=== PATIENT | female | born 1995 | race Caucasian/White ===

== ENCOUNTER 2021-12-15 17:39 | Emergency (ER) | payer OTHER, SELFPAY ==
[2021-12-15 17:51] VITALS: BP 136/75; PULSE 60; RESP 17; TEMP 36.8; O2SAT 99; BMI 19.8
[2021-12-15 18:22] LABS: Add Manual Diff / Slide Review NO; Basophils Absolute Auto 0 /uL (0-100); Basophils Percent Auto 0.6 % (0-2); Eosinophils Absolute Auto 100 /uL (0-450); Eosinophils Percent Auto 1.8 % (2-4); Hematocrit 43.7 % (36-46); Hemoglobin 15.2 g/dL (12.0-16.0); Lymphocytes Absolute Auto 1700 /uL (1100-4500); Lymphocytes Percent Auto 22.3 % (25-40); Mean Corpuscular HGB Conc 34.7 % (30-36); Mean Corpuscular Hemoglobin 32.2 PG (26-34); Mean Corpuscular Volume 92.7 fL (80-100); Monocytes Absolute Auto 600 /uL (0-900); Monocytes Percent Auto 8.2 % (3-14); Neutrophils Absolute Auto 5000 /uL (1500-7000); Neutrophils Percent Auto 67.1 % (50-75); Platelet Count 216 X10^3/uL (150-400); Red Blood Cell Count 4.71 X10^6/uL (4.0-5.2); Red Cell Distribution Width 12.1 % (11.6-14.8); White Blood Cell Count 7.4 X10^3/uL (4.5-11.0)
[2021-12-15 18:24] LABS: Alanine Aminotransferase 18 IU/L (<35); Albumin Globulin Ratio 1.5 (1.0-2.8); Alkaline Phosphatase 40 U/L (38-126); Aspartate Aminotransferase 40 IU/L (14-36); BUN Creatinine Ratio 29.2 (6-22); Bilirubin Total 1.3 mg/dL (0.2-1.3); Blood Urea Nitrogen 19 mg/dL (7-17); Calcium 9.6 mg/dL (8.4-10.2); Carbon Dioxide 29 mmol/L (22-32); Chloride 103 mmol/L (98-107); Estimated Glomerular Filt Rate > 60.0 mL/min (>60); Globulin 3.3 g/dL (1.7-4.1); Glucose 85 mg/dL (70-100); Lipase 106 U/L (23-300); Potassium 3.9 mmol/L (3.4-5.1); Sodium 138 mmol/L (137-145); Total Protein 8.3 g/dL (6.3-8.2)
[2021-12-15 18:31] LABS: HEMOLYSIS 87 (0-50)
[2021-12-15 18:48] LABS: COVID19 -Nasal RAPID Negative (Negative)
[2021-12-15 19:40] LABS: Appearance Urine UA SL CLOUDY; Bilirubin Urine UA NEGATIVE (NEGATIVE); Color Urine UA YELLOW; Glucose Urine UA NEGATIVE (Negative); Ketones Urine UA TRACE (NEGATIVE); Leukocyte Esterase Urine UA NEGATIVE (NEGATIVE); Nitrite Urine UA NEGATIVE (Negative); Occult Blood Urine UA 3+ (Negative); Protein Urine UA NEGATIVE (Negative); Specific Gravity Urine UA 1.025 (1.000-1.035); Urobilinogen Urine UA 0.2 E.U./dL (0.2)
[2021-12-15 19:47] LABS: pH Urine UA 5.5 (4.5-8.0)
--- NOTE | 2021-12-15 19:48 | ED_ITS ---
HPI - Abdominal Pain General Chief Complaint: Abdominal Pain Stated Complaint: rt to mid abd pain Time Seen by Provider: 12/15/21 19:47 Source: patient Mode of arrival: Ambulatory Limitations: no limitations History of Present Illness HPI narrative: This is a 26-year-old female comes with complaint of abdominal pain the patient describes is midline. She has had it for about 2 days. It woke her up from sleep. It improved with lying flat. She has had persistent discomfort but not constant it does seem to be worse with increased intra-abdominal pressure. She has not any fevers or chills. No nausea or vomiting. She has had normal bowel movements. She did recently and her menses but still is having some slight spotting for the past 2 days. She denies dysuria urgency or frequency. No black or bloody stools. No vaginal discharge. She does have an IUD. She denies medical issues. No prior surgeries. No tobacco, occasional alcohol, occasional THC but no illicit. She is not appreciate any lumps or bulges. She states she is quite active in physical. She states she can feel like gap in the muscles and midline in her abdomen. Related Data Home Medications Medication Instructions Recorded Confirmed levonorgestrel 20 mcg/24 hours (7 52 mg INTRAU #0 05/18/17 12/12/20 yrs) 52 mg intrauterine device (Mirena) Allergies Allergy/AdvReac Type Severity Reaction Status Date / Time No Known Drug Allergies Allergy Verified 12/15/21 17:56 Review of Systems Review of Systems ROS Unobtainable: All systems reviewed & are unremarkable except as noted in HPI and below Patient History Medical History Raynaud disease Family History Grandfather Stroke Heart disease Grandmother Hypertension Social History Smoking Status: Never smoker alcohol intake: current substance use type: does not use Smoking Status: Never smoker alcohol intake frequency: 0-2 drinks per day Substance Use Type: marijuana Exam Narrative Exam Narrative: GENERAL: Alert and oriented x three, female in mild distress. HEENT: Head normocephalic, atraumatic, EOMI, pupils reactive, face symmetric, moist mucous membranes NECK: Supple, full range of motion CARDIOVASCULAR: Regular rate and rhythm without murmurs, rubs or gallops. RESPIRATORY: Breath sounds equal bilaterally, no wheezes rales or rhonchi. ABDOMEN: Soft, nontender exam except for some very mild midline tenderness. Patient does have what feels similar to a diastasis recti that is about 1 cm on examination supraumbilical. Some very mild periumbilical tenderness and the umbilicus itself but no distention soft without any bulge or signs of hernia. Normoactive bowel sounds all 4 quadrants. No guarding or rebound, rigidity, no mass : No CVA tenderness EXTREMITIES: Normal range of motion, no clubbing or edema. Neurovascularly intact NEUROLOGICAL: Cranial nerves II through XII grossly intact. Moving all extremities SKIN: Warm, dry, no petechiae, no rashes or lesions. Initial Vital Signs Initial Vital Signs: Vital Signs Temperature 98.2 F 12/15/21 17:51 Pulse Rate 60 12/15/21 17:51 Respiratory Rate 17 12/15/21 17:51 Blood Pressure 136/75 12/15/21 17:51 Pulse Oximetry 99 12/15/21 17:51 Course Orders Ordered: ED Orders 12/15/21 18:00 COVID19 -Nasal swab/Pre-Proc Stat Complete Blood Count AUTO DIFF Stat Comprehensive Metabolic Panel Stat Lipase Stat 12/15/21 18:36 Urinalysis and Microscopic Stat 12/15/21 20:10 US abdomen limited Stat Discontinued Medications Ketorolac Tromethamine (Ketorolac 30 Mg/Ml Vial) 15 mg IV NOW ONE Stop: 12/15/21 20:11 Last Admin: 12/15/21 20:19 Dose: 15 mg Documented by: BALJINDER Vital Signs Vital signs: Vital Signs - 8 hr 12/15/21 17:51 12/15/21 21:04 Temperature 98.2 F Pulse Rate 60 62 Respiratory Rate 17 12 Blood Pressure 136/75 Pulse Oximetry 99 99 MDM - Abdominal Pain Lab Data Result diagrams: 12/15/21 18:00 12/15/21 18:00 Labs: Lab Results 12/15/21 12/15/21 12/15/21 Range/Units 18:00 18:00 18:00 WBC 7.4 (4.5-11.0) X10^3/uL RBC 4.71 (4.0-5.2) X10^6/uL Hgb 15.2 (12.0-16.0) g/dL Hct 43.7 (36-46) % MCV 92.7 (80-100) fL MCH 32.2 (26-34) PG MCHC 34.7 (30-36) % RDW 12.1 (11.6-14.8) % Plt Count 216 (150-400) X10^3/uL Neut % (Auto) 67.1 (50-75) % Lymph % (Auto) 22.3 L (25-40) % [place] % (Auto) 8.2 (3-14) % Eos % (Auto) 1.8 L (2-4) % Baso % (Auto) 0.6 (0-2) % Neut # (Auto) 5000 (0934-0120) /uL Lymph # (Auto) 1700 (6511-4405) /uL [place] # (Auto) 600 (0-900) /uL Eos # (Auto) 100 (0-450) /uL Baso # (Auto) 0 (0-100) /uL Sodium 138 (137-145) mmol/L Potassium 3.9 (3.4-5.1) mmol/L Chloride 103 (98-107) mmol/L Carbon Dioxide 29 (22-32) mmol/L BUN 19 H (7-17) mg/dL Creatinine 0.65 (0.52-1.04) mg/dL Estimated GFR > 60.0 (>60) mL/min BUN/Creatinine Ratio 29.2 H (6-22) Glucose 85 (70-100) mg/dL Calcium 9.6 (8.4-10.2) mg/dL Total Bilirubin 1.3 (0.2-1.3) mg/dL AST 40 H (14-36) IU/L ALT 18 (<35) IU/L Alkaline Phosphatase 40 (38-126) U/L Total Protein 8.3 H (6.3-8.2) g/dL Albumin 5.0 (3.5-5.0) g/dL Globulin 3.3 (1.7-4.1) g/dL Albumin/Globulin Ratio 1.5 (1.0-2.8) Lipase 106 (23-300) U/L Urine Color Urine Appearance Urine pH (4.5-8.0) Ur Specific [place] (1.000-1.035) Urine Protein (Negative) Urine Glucose (UA) (Negative) g/dL Urine Ketones (NEGATIVE) Urine Occult Blood (Negative) Urine Nitrate (Negative) Urine Bilirubin (NEGATIVE) Urine Urobilinogen (0.2) E.U./dL Ur Leukocyte Esterase (NEGATIVE) Urine RBC (0-5/HPF) Urine WBC (0-5/HPF) Ur Squamous Epith Cells (0-5/HPF) Ur Transition Epith Cell (0-5/HPF) Urine Bacteria (None) Ur Culture Indicated? SARS-CoV-2 (PCR) Negative (Negative) 12/15/21 Range/Units 18:36 WBC (4.5-11.0) X10^3/uL RBC (4.0-5.2) X10^6/uL Hgb (12.0-16.0) g/dL Hct (36-46) % MCV (80-100) fL MCH (26-34) PG MCHC (30-36) % RDW (11.6-14.8) % Plt Count (150-400) X10^3/uL Neut % (Auto) (50-75) % Lymph % (Auto) (25-40) % [place] % (Auto) (3-14) % Eos % (Auto) (2-4) % Baso % (Auto) (0-2) % Neut # (Auto) (6578-6020) /uL Lymph # (Auto) (6027-5807) /uL [place] # (Auto) (0-900) /uL Eos # (Auto) (0-450) /uL Baso # (Auto) (0-100) /uL Sodium (137-145) mmol/L Potassium (3.4-5.1) mmol/L Chloride (98-107) mmol/L Carbon Dioxide (22-32) mmol/L BUN (7-17) mg/dL Creatinine (0.52-1.04) mg/dL Estimated GFR (>60) mL/min BUN/Creatinine Ratio (6-22) Glucose (70-100) mg/dL Calcium (8.4-10.2) mg/dL Total Bilirubin (0.2-1.3) mg/dL AST (14-36) IU/L ALT (<35) IU/L Alkaline Phosphatase (38-126) U/L Total Protein (6.3-8.2) g/dL Albumin (3.5-5.0) g/dL Globulin (1.7-4.1) g/dL Albumin/Globulin Ratio (1.0-2.8) Lipase (23-300) U/L Urine Color Yellow Urine Appearance Sl cloudy Urine pH 5.5 (4.5-8.0) Ur Specific [place] 1.025 (1.000-1.035) Urine Protein Negative (Negative) Urine Glucose (UA) Negative (Negative) g/dL Urine Ketones Trace H (NEGATIVE) Urine Occult Blood 3+ H (Negative) Urine Nitrate Negative (Negative) Urine Bilirubin Negative (NEGATIVE) Urine Urobilinogen 0.2 (0.2) E.U./dL Ur Leukocyte Esterase Negative (NEGATIVE) Urine RBC 5-10/hpf H (0-5/HPF) Urine WBC 5-10/hpf H (0-5/HPF) Ur Squamous Epith Cells >30 /hpf H (0-5/HPF) Ur Transition Epith Cell 5-10/hpf H (0-5/HPF) Urine Bacteria Many (>30) H (None) Ur Culture Indicated? Cult not indicated SARS-CoV-2 (PCR) (Negative) Point of care testing: Point of Care Testing Test Results Negative Urine Dip Bedside Urine Glucose Negative Bedside Urine Bilirubin - Negative Bedside Urine Ketone - Negative Urine Specific [place] 1.030 Bedside Urine Occult Blood ++ Bedside Urine pH 6.0 Bedside Urine Protein - Negative Bedside Urine Urobilinogen - Negative Bedside Urine Nitrite - Negative Bedside Urine Leukocytes - Negative Esterase Imaging Data US - abdomen: Radiologist's Impression: [place] [id number] Ultrasound Report Signed Patient: Dori Knowles MR#: [id number] : 1995 Acct:[id number] Age/Sex: 26 / F Date of Service: 12/15/21 Loc: ED Accession Number: [id number] ?? Procedure: US abdomen limited Ordering Provider: Wanda Moses D.O. PROCEDURE: US ABDOMEN LIMITED ? INDICATIONS:? PERIUMBILICAL PAIN ? TECHNIQUE:? Real-time focused scanning was performed of the abdomen, with image documentation.? ? COMPARISON:? None. ? FINDINGS:? No hernia is seen in the periumbilical region.? The appendix is not visualized at the right lower quadrant. ? IMPRESSION:? No periumbilical hernia.? Appendix is not visualized in the right lower quadrant. ? ? Dictated by: Alvaro Thakkar M.D. on 12/15/2021 at 20:56 ? ? Approved by: Alvaro Thakkar M.D. on 12/15/2021 at 20:57?? MDM Narrative Medical decision making narrative: This is a 26-year-old female who has midline abdominal pain which she describes as being intermittent for the past 2 days worse with increased abdominal pressure. She feels gap some tenderness at the umbilicus. No obvious hernia on palpation she does have what feels like a diastasis recti. She is not having any tenderness on palpation with right lower quadrant and really denies any right lower quadrant pelvic pain today. Patient has hematuria on her urine as well as squamous epithelials she recently finished her menses but is continuing to have some spotting which is likely a cause of this. Plan for abdominal ultrasound we did discuss CT abdomen pelvis but deferred secondary to risk versus benefits. Discharge Plan Departure Patient Disposition: Home Clinical Impression: Abdominal pain Activity Restrictions/Additional Instructions: Follow-up with your physician for recheck if you have persistent symptoms. No obvious hernia was noted on ultrasound today but if you notice any lumps or protrusions you should be re-evaluated. You do appear to have some diastasis recti on examination this could be contributing to her symptoms as well. Please return for fevers, rapidly worsening abdominal pain, vomiting, black or bloody stools, new urinary changes, or other new or concerning symptoms. Prescriptions: No Action levonorgestrel [Mirena] 1 EACH intrauterine device 52 mg INTRAU Qty: 0 0RF Referrals: Emily Morrison MD [Primary Care Provider] -
[2021-12-15 19:51] LABS: Bacteria Urine Many (>30); Culture Indicated Urine Cult Not Indicated; RBC Urine 5-10/HPF (0-5/HPF); Squamous Epithelial Cell Urine >30 /HPF (0-5/HPF)
[2021-12-15 19:52] LABS: Transitional Epi Cells Urine 5-10/HPF (0-5/HPF); WBC Urine 5-10/HPF (0-5/HPF)
--- NOTE | 2021-12-15 20:10 | DI.US.S_ITS ---
PROCEDURE: US ABDOMEN LIMITED INDICATIONS: PERIUMBILICAL PAIN TECHNIQUE: Real-time focused scanning was performed of the abdomen, with image documentation. COMPARISON: None. FINDINGS: No hernia is seen in the periumbilical region. The appendix is not visualized at the right lower quadrant. IMPRESSION: No periumbilical hernia. Appendix is not visualized in the right lower quadrant. Dictated by: Alvaro Thakkar M.D. on 12/15/2021 at 20:56 Approved by: Alvaro Thakkar M.D. on 12/15/2021 at 20:57
[2021-12-15] MEDS: KETOROLAC 30 MG/ML VIAL 15 MG IV (20:19)
[2021-12-15 21:04] VITALS: PULSE 62; RESP 12; O2SAT 99
== END 2021-12-15 21:05 | disposition home or self-care (01) ==
PROVIDERS: Emergency Medicine; Emergency Provider Emergency Medicine; PCP Family Medicine
DX: R10.9 Unspecified abdominal pain (principal); Z20.822 Contact with and (suspected) exposure to COVID-19
CPT/HCPCS: 76705; 80053; 81001; 81003; 81025; 83690; 85025; 87635; 96374; 99283; 99284; C9803; J1885

== ENCOUNTER → 2023-04-20 07:58 | Outpatient (CLI) | payer OTHER, SELFPAY ==
[2023-04-20 08:48] LABS: Influenza A - CEPHEID Flu A NEGATIVE (NEGATIVE); Influenza B - CEPHEID Flu B NEGATIVE (NEGATIVE); Respiratory Syncytial Virus Negative (Negative)
[2023-04-20 09:18] LABS: COVID-19 CEPHEID 4-PLEX PCR Negative (Negative)
== END ==
PROVIDERS: PCP Family Medicine; Visit Provider Student in an Organized Health Care Education/Training Program
DX: J06.9 Acute upper respiratory infection, unspecified (principal)
CPT/HCPCS: 0241U

== ENCOUNTER 2023-04-20 08:48 | Emergency (ER) | payer OTHER, SELFPAY ==
[2023-04-20] VITALS (9 sets, daily range): BP systolic 128–166; BP diastolic 75–103; PULSE 57–73; RESP 16; TEMP 37.3–37.4; O2SAT 97–100; BMI 18.2
--- NOTE | 2023-04-20 09:01 | DI.US.S_ITS ---
PROCEDURE: US ABDOMEN LIMITED INDICATIONS: EPIGASTRIC PAIN. NAUSEA AND VOMITING. TECHNIQUE: Real-time focused scanning was performed of the abdomen, with image documentation. COMPARISON: [facility], US, US ABDOMEN LIMITED, 12/15/2021, 20:34. FINDINGS: Liver measures 14 cm. No focal lesion. Echotexture is within normal limits. Gallbladder is within normal limits. CBD measures 4 mm. No pathologic free fluid. Visualized pancreas within normal limits. IMPRESSION: No acute sonographic abnormality in the right upper quadrant. Dictated by: Prateek Segura M.D. on 04/20/2023 at 9:49 Approved by: Prateek Segura M.D. on 04/20/2023 at 9:50
--- NOTE | 2023-04-20 09:02 | ED.GENADULT ---
HPI - General Adult General Chief complaint: Nausea/Vomiting/Diarrhea Stated complaint: haven't stopped throwing up since Tuesday Time Seen by Provider: 04/20/23 08:54 History of Present Illness HPI narrative: 27-year-old nonsmoker without any known chronic medical history presents with her significant other and a chief complaint of persistent vomiting since Tuesday. She states that she had gone out drinking with some girlfriends on Tuesday night and started throwing up Tuesday but this has persisted over the course of the week. She is had very little to eat or drink and feels fatigued, dizzy and lightheaded. She has some generalized abdominal cramping but no specific abdominal pain. She denies any constipation, diarrhea or urinary complaint. She denies any history of the same. She had initially presented to the walk-in clinic and was sent here for further workup Related Data Home Medications Medication Instructions Recorded Confirmed levonorgestrel 21 mcg/24 hours (8 52 mg INTRAU ##0 05/18/17 04/06/23 yrs) 52 mg intrauterine device (Mirena) Previous Rx's Medication Instructions Recorded metronidazole 500 mg tablet 500 mg PO BID #14 tabs 04/06/23 ondansetron 4 mg disintegrating 4 mg PO TID-QID PRN nausea and 04/20/23 tablet vomiting #10 tabs pantoprazole 40 mg tablet,delayed 40 mg PO DAILY #30 tabs 04/20/23 release (Protonix) Allergies Allergy/AdvReac Type Severity Reaction Status Date / Time No Known Drug Allergies Allergy Verified 12/31/22 10:48 Review of Systems Review of Systems Narrative: GENERAL: See HPI HEENT: Denies sinus pain, ear pain, sore throat, difficulty swallowing, dizziness. RESPIRATORY: Denies dyspnea, cough, wheezing, hemoptysis, sputum. CARDIOVASCULAR: Denies chest pain, palpitations, orthopnea, edema, GASTROINTESTINAL: See HPI : Denies dysuria, frequency, incontinence, hematuria, urinary retention. MUSCULOSKELETAL: denies weakness, joint pain, or bony pain SKIN: Denies rash, skin lesions, or other NEUROLOGIC: Denies weakness, headache, numbness, change in speech, confusion, seizures, incoordination. PSYCHIATRIC: No concerning psychosocial issues. 12 point review of systems is negative except for those stated above Patient History Medical History Raynaud disease Family History Grandfather Stroke Heart disease Grandmother Hypertension Social History Smoking Status: Never smoker alcohol intake: current substance use type: does not use Smoking Status: Never smoker alcohol intake frequency: 0-2 drinks per day Substance Use Type: marijuana Exam Narrative Exam Narrative: GENERAL: [27] year old patient appears stated age. Well-developed patient, in mild distress.Holding an emesis bag HEAD: Atraumatic. Normocephalic. EYES: Pupils equal round and reactive. Extraocular motions intact. No scleral icterus. No injection or drainage. ENT: Nose without bleeding, purulent drainage. Throat without erythema, tonsillar hypertrophy or exudate. Airway patent. NECK: Trachea midline. Non tender CARDIOVASCULAR: Regular rate and rhythm without murmurs, gallops, or rubs. RESPIRATORY: Clear to auscultation. Breath sounds equal bilaterally. No wheezes, rales, or rhonchi. GASTROINTESTINAL: Abdomen soft, mild generalized tenderness, nondistended. EXTREMITIES: No edema or joint tenderness. BACK: Nontender without deformity or crepitance. No flank tenderness. NEURO: AOx3. SKIN: No rash or erythema of visible areas Initial Vital Signs Initial Vital Signs: Vital Signs Temperature 99.3 F 04/20/23 09:02 Pulse Rate 63 04/20/23 09:02 Respiratory Rate 16 04/20/23 09:02 Blood Pressure 166/99 H 04/20/23 09:02 Pulse Oximetry 99 04/20/23 09:02 Oxygen Delivery Method Room Air 04/20/23 09:02 Course Orders Ordered: Discontinued Medications Sodium Chloride (Normal Saline 0.9%) 1,000 mls @ 1,000 mls/hr IV BOLUS ONE Stop: 04/20/23 10:00 Last Infusion: 04/20/23 10:02 Dose: 0 mls/hr Documented By: Admin: 04/20/23 09:13 Dose: 1,000 mls/hr Documented By: CULLEN Lactated Ringer's (Lactated Ringers) 1,000 mls @ 1,000 mls/hr IV BOLUS ONE Stop: 04/20/23 10:54 Last Infusion: 04/20/23 10:55 Dose: 0 mls/hr Documented By: Admin: 04/20/23 10:03 Dose: 1,000 mls/hr Documented By: CULLEN POTASSIUM CHLORIDE IN WATER (Potassium Cl 10 Meq/100 Ml Ursula) 10 meq in 100 mls @ 100 mls/hr IV Q1H KARMA Stop: 04/20/23 14:14 Last Infusion: 04/20/23 11:18 Dose: 0 mls/hr Documented By: Admin: 04/20/23 10:13 Dose: 100 mls/hr Documented By: CULLEN Metoclopramide HCl (Metoclopramide 10 Mg/2 Ml Inj) 10 mg IV NOW ONE Stop: 04/20/23 09:55 Last Admin: 04/20/23 10:03 Dose: 10 mg Documented By: CULLEN Ondansetron HCl (Ondansetron 4 Mg/2 Ml Inj) 4 mg IV NOW ONE Stop: 04/20/23 09:02 Last Admin: 04/20/23 09:13 Dose: 4 mg Documented By: CLULEN Pantoprazole Sodium (Pantoprazole 40 Mg Vial) 40 mg IV NOW ONE Stop: 04/20/23 09:02 Last Admin: 04/20/23 09:13 Dose: 40 mg Documented By: CULLEN Reevaluation(s) Reevaluation #1: feeling somewhat better after first round of meds, did vomit once since zofran. Reglan ordered Vital Signs Vital signs: Vital Signs - 8 hr 04/20/23 09:02 04/20/23 09:53 04/20/23 09:54 Temperature 99.3 F Pulse Rate 63 Respiratory Rate 16 Blood Pressure 166/99 H 154/98 H Pulse Oximetry 99 97 Oxygen Delivery Method Room Air 04/20/23 09:54 04/20/23 10:00 04/20/23 10:17 Temperature Pulse Rate 58 L 63 63 Respiratory Rate Blood Pressure Pulse Oximetry 100 100 100 Oxygen Delivery Method 04/20/23 10:17 04/20/23 10:30 04/20/23 10:30 Temperature Pulse Rate 57 L Respiratory Rate Blood Pressure 128/83 142/89 H Pulse Oximetry 100 Oxygen Delivery Method 04/20/23 11:00 04/20/23 11:01 04/20/23 11:01 Temperature Pulse Rate 63 73 Respiratory Rate 16 Blood Pressure 148/103 H Pulse Oximetry 98 Oxygen Delivery Method Medical Decision Making Lab Data 04/20/23 09:10 04/20/23 09:10 Labs: Lab Results 04/20/23 04/20/23 04/20/23 Range/Units 09:00 09:10 09:10 WBC 14.9 H (4.5-11.0) X10^3/uL RBC 5.14 (4.0-5.2) X10^6/uL Hgb 16.4 H (12.0-16.0) g/dL Hct 45.5 (36-46) % MCV 88.6 (80-100) fL MCH 31.9 (26-34) PG MCHC 36.0 (30-36) % RDW 12.1 (11.6-14.8) % Plt Count 214 (150-400) X10^3/uL Neut % (Auto) 82.9 H (50-75) % Lymph % (Auto) 9.7 L (25-40) % [place] % (Auto) 7.0 (3-14) % Eos % (Auto) 0.2 L (2-4) % Baso % (Auto) 0.2 (0-2) % Neut # (Auto) 87626 H (9196-8232) /uL Lymph # (Auto) 1500 (4829-4865) /uL [place] # (Auto) 1000 H (0-900) /uL Eos # (Auto) 0 (0-450) /uL Baso # (Auto) 0 (0-100) /uL VBG pH (7.33-7.43) VBG pCO2 (45-50) mmHg VBG pO2 (35-45) mmHg VBG HCO3 (24-28) mmol/L VBG Total CO2 (24-29) mmol/L VBG O2 Saturation (70-75) % VBG Base Excess (0-4) mmol/L FiO2 Sodium 133 L (137-145) mmol/L Potassium 3.2 L (3.4-5.1) mmol/L Chloride 94 L (98-107) mmol/L Carbon Dioxide 27 (22-32) mmol/L BUN 22 H (7-17) mg/dL Creatinine 0.74 (0.52-1.04) mg/dL Estimated GFR > 60 (>60) mL/min BUN/Creatinine Ratio 29.7 H (6-22) Glucose 98 (70-100) mg/dL Calcium 9.4 (8.4-10.2) mg/dL Magnesium 2.1 (1.6-2.3) mg/dL Total Bilirubin 1.7 H (0.2-1.3) mg/dL AST 42 H (14-36) IU/L ALT 27 (<35) IU/L Alkaline Phosphatase 47 (38-126) U/L Total Protein 8.5 H (6.3-8.2) g/dL Albumin 4.8 (3.5-5.0) g/dL Globulin 3.7 (1.7-4.1) g/dL Albumin/Globulin Ratio 1.3 (1.0-2.8) Lipase 87 (23-300) U/L Urine RBC 1-5/hpf (0-5/HPF) Urine WBC 5-10/hpf H (0-5/HPF) Ur Squamous Epith Cells 10-30 /hpf H (0-5/HPF) Urine Bacteria Moderate (10-30) H (None) Ur Culture Indicated? TNP Ketones (<0.27) mmol/L 04/20/23 04/20/23 Range/Units 09:10 09:21 WBC (4.5-11.0) X10^3/uL RBC (4.0-5.2) X10^6/uL Hgb (12.0-16.0) g/dL Hct (36-46) % MCV (80-100) fL MCH (26-34) PG MCHC (30-36) % RDW (11.6-14.8) % Plt Count (150-400) X10^3/uL Neut % (Auto) (50-75) % Lymph % (Auto) (25-40) % [place] % (Auto) (3-14) % Eos % (Auto) (2-4) % Baso % (Auto) (0-2) % Neut # (Auto) (5109-2038) /uL Lymph # (Auto) (9654-5696) /uL [place] # (Auto) (0-900) /uL Eos # (Auto) (0-450) /uL Baso # (Auto) (0-100) /uL VBG pH 7.43 (7.33-7.43) VBG pCO2 41.6 L (45-50) mmHg VBG pO2 20 L (35-45) mmHg VBG HCO3 28 (24-28) mmol/L VBG Total CO2 29 (24-29) mmol/L VBG O2 Saturation 32 L (70-75) % VBG Base Excess 3.0 (0-4) mmol/L FiO2 21 Sodium (137-145) mmol/L Potassium (3.4-5.1) mmol/L Chloride (98-107) mmol/L Carbon Dioxide (22-32) mmol/L BUN (7-17) mg/dL Creatinine (0.52-1.04) mg/dL Estimated GFR (>60) mL/min BUN/Creatinine Ratio (6-22) Glucose (70-100) mg/dL Calcium (8.4-10.2) mg/dL Magnesium (1.6-2.3) mg/dL Total Bilirubin (0.2-1.3) mg/dL AST (14-36) IU/L ALT (<35) IU/L Alkaline Phosphatase (38-126) U/L Total Protein (6.3-8.2) g/dL Albumin (3.5-5.0) g/dL Globulin (1.7-4.1) g/dL Albumin/Globulin Ratio (1.0-2.8) Lipase (23-300) U/L Urine RBC (0-5/HPF) Urine WBC (0-5/HPF) Ur Squamous Epith Cells (0-5/HPF) Urine Bacteria (None) Ur Culture Indicated? Ketones 0.86 H (<0.27) mmol/L Point of Care Testing Test Results Negative Urine Dip Bedside Urine Glucose Negative Bedside Urine Bilirubin - Negative Bedside Urine Ketone +++ 80 Urine Specific [place] 1.015 Bedside Urine Occult Blood ++ Bedside Urine pH 6.0 Bedside Urine Protein +/- 15 Bedside Urine Urobilinogen +/- 1mg Bedside Urine Nitrite - Negative Bedside Urine Leukocytes + 70 Esterase Point of care testing: Point of Care Testing Test Results Negative Urine Dip Bedside Urine Glucose Negative Bedside Urine Bilirubin - Negative Bedside Urine Ketone +++ 80 Urine Specific [place] 1.015 Bedside Urine Occult Blood ++ Bedside Urine pH 6.0 Bedside Urine Protein +/- 15 Bedside Urine Urobilinogen +/- 1mg Bedside Urine Nitrite - Negative Bedside Urine Leukocytes + 70 Esterase MDM Narrative Medical decision making narrative: [27] year old patient presents with N/V Multiple etiologies for patient's symptoms considered including, but not limited to: [Pancreatitis versus gallbladder disease versus alcoholic ketoacidosis versus enteritis versus other] Prior Charts reviewed in our EMR Primary Historian: patient Labs reviewed and interpreted by myself: Leukocytosis Imaging reviewed:US without acute findings Patient's symptoms improved over duration of stay with above-stated therapies. Patient's history and physical exam reassuring. Labs largely unremarkable, slightly hypokalemic, addressed with Kiley alejandre, patient tolerating orals. No further workup or intervention needed at this time. Patient appropriate for discharge. Return precautions including persistent vomiting, lightheadedness, fever and other discussed Findings and discharge diagnosis discussed with patient/family followed by verbalization of understanding Return precautions discussed with patient/family whom verbalize understanding of diagnosis and plan Discharge Plan Departure Patient Disposition: Home Clinical Impression: Vomiting, Acute hypokalemia Instructions: DI for Dehydration -- Adult, Nausea and Vomiting-Adult Activity Restrictions/Additional Instructions: *You have been diagnosed with [nausea and vomiting] * As we discussed your history and physical exam as well as labs and imaging are very reassuring. There is no evidence of any severe diagnoses that would require a specific or immediate intervention. *What to do: *Please continue to take your regular medications as directed. [x ] New medication prescriptions sent to your pharmacy: [ [facility]] *Please follow up with your primary care provider in 2-3 days, call for an appointment. Let them know you were seen in the Emergency Department and that we ask that you be seen in follow up. We will electronically transmit a record of today's note if your PCP is in our system *Please consider a clear liquid diet for the next 24-48 hours and then slowly advance to regular as tolerated. Also, try to avoid alcohol, nicotine, caffeine, spicy, acidic or fatty foods as this may worsen your symptoms *If you do not have a primary care provider please contact the [facility] Resource line at [phone]. They will ask some questions about your medical history and help get you set up with a doctor in the community. *Return to Emergency Department if you should have any new, worsening or concerning symptoms, such as [fever greater than 101 F, shaking chills, worsening pain, persistent vomiting or other bothersome symptoms] Prescriptions: New pantoprazole [Protonix] 40 mg tablet,delayed release (DR/EC) 40 mg PO DAILY Qty: 30 0RF ondansetron 4 mg tablet,disintegrating 4 mg PO TID-QID PRN (Reason: nausea and vomiting) Qty: 10 0RF No Action metronidazole 500 mg tablet 500 mg PO BID Qty: 14 0RF levonorgestrel [Mirena] 1 EACH intrauterine device 52 mg INTRAU Qty: 0 Referrals: Emily Morrison MD [Primary Care Provider] - Stand Alone Forms: Patient Portal/API
[2023-04-20] MEDS: SODIUM CHLORIDE 0.9% 1,000 ML 1000 ML IV (09:13)
[2023-04-20] MEDS: PANTOPRAZOLE 40 MG VIAL IV (09:13)
[2023-04-20] MEDS: ONDANSETRON 4 MG/2 ML INJ IV (09:13)
[2023-04-20 09:25] LABS: Fractionated Inspired Oxygen 21; HCO3 VBG 28 mmol/L (24-28); Oxygen Saturation VBG 32 % (70-75); PCO2 VBG 41.6 mmHg (45-50); PO2 VBG 20 mmHg (35-45); Total CO2 VBG 29 mmol/L (24-29); pH VBG 7.43 (7.33-7.43)
[2023-04-20 09:31] LABS: Add Manual Diff / Slide Review NO; Basophils Absolute Auto 0 /uL (0-100); Basophils Percent Auto 0.2 % (0-2); Eosinophils Absolute Auto 0 /uL (0-450); Eosinophils Percent Auto 0.2 % (2-4); Hematocrit 45.5 % (36-46); Hemoglobin 16.4 g/dL (12.0-16.0); Lymphocytes Absolute Auto 1500 /uL (1100-4500); Lymphocytes Percent Auto 9.7 % (25-40); Mean Corpuscular Hemoglobin 31.9 PG (26-34); Mean Corpuscular Volume 88.6 fL (80-100); Monocytes Absolute Auto 1000 /uL (0-900); Neutrophils Absolute Auto 12300 /uL (1500-7000); Neutrophils Percent Auto 82.9 % (50-75); Platelet Count 214 X10^3/uL (150-400); Red Blood Cell Count 5.14 X10^6/uL (4.0-5.2); Red Cell Distribution Width 12.1 % (11.6-14.8); White Blood Cell Count 14.9 X10^3/uL (4.5-11.0)
[2023-04-20 09:48] LABS: Alanine Aminotransferase 27 IU/L (<35); Albumin 4.8 g/dL (3.5-5.0); Albumin Globulin Ratio 1.3 (1.0-2.8); Alkaline Phosphatase 47 U/L (38-126); Aspartate Aminotransferase 42 IU/L (14-36); BUN Creatinine Ratio 29.7 (6-22); Bilirubin Total 1.7 mg/dL (0.2-1.3); Blood Urea Nitrogen 22 mg/dL (7-17); Calcium 9.4 mg/dL (8.4-10.2); Carbon Dioxide 27 mmol/L (22-32); Chloride 94 mmol/L (98-107); Estimated Glomerular Filt Rate > 60 mL/min (>60); Globulin 3.7 g/dL (1.7-4.1); Glucose 98 mg/dL (70-100); HEMOLYSIS 29 (0-50); Lipase 87 U/L (23-300); Magnesium 2.1 mg/dL (1.6-2.3); Potassium 3.2 mmol/L (3.4-5.1); Sodium 133 mmol/L (137-145); Total Protein 8.5 g/dL (6.3-8.2)
[2023-04-20 09:49] LABS: Ketones (Beta-Hydroxybutyrate) 0.86 mmol/L (<0.27)
[2023-04-20 09:50] LABS: RBC Urine 1-5/HPF (0-5/HPF); WBC Urine 5-10/HPF (0-5/HPF)
[2023-04-20 09:51] LABS: Bacteria Urine Moderate (10-30); Squamous Epithelial Cell Urine 10-30 /HPF (0-5/HPF)
[2023-04-20] MEDS: LACTATED RINGERS 1,000 ML 1000 ML IV (10:03)
[2023-04-20] MEDS: METOCLOPRAMIDE 10 MG/2 ML INJ IV (10:03)
[2023-04-20] MEDS: POTASSIUM CHLORIDE IN WATER 10 MEQ/100 ML PIGGYBACK 100 MEQ IV (10:13)
--- NOTE | 2023-04-20 11:10 | PC.NURSE ---
Pt given ice chips, and tolerated.
== END 2023-04-20 11:37 | disposition home or self-care (01) ==
PROVIDERS: Emergency Provider Emergency Medicine; PCP Family Medicine
DX: E87.6 Hypokalemia (principal); R11.2 Nausea with vomiting, unspecified; R42 Dizziness and giddiness; J06.9 Acute upper respiratory infection, unspecified
CPT/HCPCS: 0241U; 36415; 76705; 80053; 81003; 81015; 81025; 82009; 82805; 83690; 83735; 85025; 87086; 96361; 96365; 96375; 99284; C9113; J2405; J2765

== ENCOUNTER → 2023-08-17 14:54 | Outpatient (CLI) | payer OTHER, SELFPAY ==
--- NOTE | 2023-08-17 14:54 | DI.US.S_ITS ---
PROCEDURE: US OB >= 14 WEEKS FETUS INDICATIONS: DATING AND VIABILITY OUTSIDE/PRIOR DATING DATA: Last menstrual period (LMP): 06/05/2023. LMP-based estimated date of delivery (BERTA): 03/12/2024. TECHNIQUE: Real-time scanning was performed of the fetus, with image documentation and biometric measurements. Endovaginal scanning: Not performed COMPARISON: None. FINDINGS: General: A single living intrauterine gestation is present. Presentation: Vertex. Placenta: Placental position is posterior , without previa. heart rate: 155 beats per minute. Maternal cervical canal: 3.9 cm long. Normal lower limit is 2.5 cm. biometrics: Biparietal diameter: 3.3 centimeters, 16 weeks and 1 day Head circumference: 12.5 centimeters, 16 weeks and 2 days Abdominal circumference: 9.7 centimeters, 15 weeks and 5 days Femur length: 1.8 centimeters, 15 weeks and 3 days Clinically estimated gestational age: 10 weeks and 3 days Composite gestational age from present scan: 15 weeks and 6 days IMPRESSION: Single live intrauterine dating 15 weeks and 6 days. We strive to produce accurate, complete, and clear reports of imaging services. To assist us in improving patient care, this report was composed using standard report templates and voice recognition software. Therefore, it may contain abnormal punctuation, insertions and/or omissions. Occasional wrong-word or sound-alike substitutions may occur. Though we review the report and make efforts to correct it, we do recommend that the report be read carefully in proper context to recognize any text inaccuracies. Dictated by: Abhay Quiñones M.D. on 08/17/2023 at 16:17 Approved by: Abhay Quiñones M.D. on 08/17/2023 at 16:19
== END ==
LOC: US 14:54
PROVIDERS: PCP Family Medicine; Referring Provider Family Medicine; Visit Provider Family Medicine
DX: Z34.00 Encounter for supervision of normal first pregnancy, unspecified trimester (principal); Z3A.15 15 weeks gestation of pregnancy
CPT/HCPCS: 76815

== ENCOUNTER → 2023-09-21 14:07 | Outpatient (CLI) | payer OTHER, SELFPAY ==
--- NOTE | 2023-09-21 | DI.US.S_ITS ---
PROCEDURE: US OB >= 14 WEEKS FETUS INDICATIONS: 20 WEEK ANATOMY SCAN OUTSIDE/PRIOR DATING DATA: Last menstrual period (LMP): 06/05/2023. LMP-based estimated date of delivery (BERTA): 03/12/2024. First dating scan (date and location): 08/17/2023. Estimated date of delivery (BERTA) from first dating scan: 02/02/2024. The calculations are made using the ultrasound BERTA of 02/02/2024. TECHNIQUE: Real-time scanning was performed of the fetus, with image documentation and biometric measurements. COMPARISON: [facility], , OB >= 14 WEEKS FETUS, 08/17/2023, 15:03. FINDINGS: General: A single living intrauterine gestation is present. Presentation: Vertex. Placenta: Placental position is fundal , without previa. Amniotic fluid index: 8.7 cm, normal range is 5-24 cm. Single deepest vertical pocket is 3.3 cm. heart rate: 155 beats per minute. Maternal cervical canal: 3.5 cm long. Normal lower limit is 2.5 cm. biometrics: Biparietal diameter: 5.1 cm. 21 weeks 3 days. Head circumference: 18.4 cm. 20 weeks 5 days. Abdominal circumference: 15.4 cm. 20 weeks 4 days. Femur length: 3.3 cm. 20 weeks 1 day. Clinically estimated gestational age: 20 weeks 6 days Composite gestational age from present scan: 20 weeks 5 days Estimated weight and percentile: 355 grams. 25th percentile. Anatomic survey: Neuro: Ventricles are non-dilated at less than 10 mm. Cisterna magna is normal at 3-11 mm. Cerebellum is normal in size and morphology. Nuchal skin fold: Normal at less than 6 mm between 14-21 weeks gestational age. Face: Nose and lips, facial profile are normal. Spine: No evidence for spina bifida. Heart: 4-chambered heart is present, with normal ventricular outflow tracts. Diaphragm: Diaphragm is intact. Stomach: Left-sided stomach is present. Kidneys: No hydronephrosis. Normal is less than 5 mm in 2nd trimester, less than 7 mm in 3rd trimester. Cord: 3-vessel cord has orthotopic insertion. Bladder: Normal in size. Extremities: All 4 extremities identified. IMPRESSION: 1. Single live intrauterine with a composite ultrasound age of 20 weeks 5 days. 2. Estimated weight 355 grams. 25th percentile. 3. Normal anatomy. We strive to produce accurate, complete, and clear reports of imaging services. To assist us in improving patient care, this report was composed using standard report templates and voice recognition software. Therefore, it may contain abnormal punctuation, insertions and/or omissions. Occasional wrong-word or sound-alike substitutions may occur. Though we review the report and make efforts to correct it, we do recommend that the report be read carefully in proper context to recognize any text inaccuracies. Dictated by: Raymond Joyce M.D. on 09/21/2023 at 16:13 Approved by: Raymond Joyce M.D. on 09/21/2023 at 16:16
== END ==
PROVIDERS: PCP Family Medicine; Referring Provider Family Medicine; Visit Provider Family Medicine
DX: Z36.89 Encounter for other specified antenatal screening (principal); Z3A.20 20 weeks gestation of pregnancy
CPT/HCPCS: 76811

== ENCOUNTER → 2023-11-09 09:19 | Outpatient (CLI) | payer OTHER, SELFPAY ==
[2023-11-09 11:01] LABS: Add Manual Diff / Slide Review NO; Basophils Absolute Auto 0 /uL (0-100); Basophils Percent Auto 0.1 % (0-2); Eosinophils Absolute Auto 100 /uL (0-450); Eosinophils Percent Auto 0.7 % (2-4); Hematocrit 38.2 % (36-46); Hemoglobin 13.3 g/dL (12.0-16.0); Lymphocytes Absolute Auto 1300 /uL (1100-4500); Mean Corpuscular Hemoglobin 31.6 PG (26-34); Mean Corpuscular Volume 90.3 fL (80-100); Monocytes Absolute Auto 900 /uL (0-900); Monocytes Percent Auto 6.7 % (3-14); Neutrophils Absolute Auto 10900 /uL (1500-7000); Neutrophils Percent Auto 82.5 % (50-75); Platelet Count 194 X10^3/uL (150-400); Red Blood Cell Count 4.22 X10^6/uL (4.0-5.2); Red Cell Distribution Width 12.6 % (11.6-14.8); White Blood Cell Count 13.2 X10^3/uL (4.5-11.0)
[2023-11-09 11:27] LABS: GTT (PREG) 1 Hour PP 50gm Dose 67 mg/dL (76-139)
== END ==
LOC: LAB 09:19
PROVIDERS: PCP Family Medicine; Referring Provider Family Medicine; Visit Provider Family Medicine
DX: Z34.00 Encounter for supervision of normal first pregnancy, unspecified trimester (principal); D64.9 Anemia, unspecified
CPT/HCPCS: 36415; 82950; 85025

== ENCOUNTER → 2023-12-12 16:07 | Outpatient (CLI) | payer OTHER, SELFPAY ==
[2023-12-12 18:12] LABS: Appearance Urine UA CLEAR; Bilirubin Urine UA NEGATIVE (NEGATIVE); Color Urine UA YELLOW; Glucose Urine UA NEGATIVE (Negative); Ketones Urine UA NEGATIVE (NEGATIVE); Leukocyte Esterase Urine UA NEGATIVE (NEGATIVE); Nitrite Urine UA NEGATIVE (Negative); Occult Blood Urine UA NEGATIVE (Negative); Protein Urine UA NEGATIVE (Negative); Specific Gravity Urine UA >=1.030 (1.000-1.035); Urobilinogen Urine UA 0.2 E.U./dL (0.2)
[2023-12-12 18:24] LABS: Add Manual Diff / Slide Review NO; Basophils Absolute Auto 0 /uL (0-100); Basophils Percent Auto 0.3 % (0-2); Eosinophils Absolute Auto 100 /uL (0-450); Eosinophils Percent Auto 0.6 % (2-4); Hematocrit 35.8 % (36-46); Hemoglobin 12.7 g/dL (12.0-16.0); Lymphocytes Absolute Auto 1900 /uL (1100-4500); Lymphocytes Percent Auto 11.9 % (25-40); Mean Corpuscular HGB Conc 35.4 % (30-36); Mean Corpuscular Hemoglobin 30.9 PG (26-34); Mean Corpuscular Volume 87.1 fL (80-100); Monocytes Absolute Auto 900 /uL (0-900); Monocytes Percent Auto 5.6 % (3-14); Neutrophils Absolute Auto 12800 /uL (1500-7000); Neutrophils Percent Auto 81.6 % (50-75); Platelet Count 191 X10^3/uL (150-400); Red Blood Cell Count 4.11 X10^6/uL (4.0-5.2); Red Cell Distribution Width 12.6 % (11.6-14.8); White Blood Cell Count 15.7 X10^3/uL (4.5-11.0)
[2023-12-12 19:15] LABS: Hepatitis B Surface Antigen NEGATIVE s/c (NEGATIVE); Rubella Antibody IgG 28.7 IU/mL (>15)
[2023-12-12 19:32] LABS: HIV 1 & 2 Ab/Ag 4th Gen Combo NEGATIVE (NEGATIVE); Hep C Virus Ab w/Reflex Quant NEGATIVE s/c (NEGATIVE)
[2023-12-14 07:36] LABS: RPR Screen Non Reactive (Non Reactive)
[2023-12-14 09:43] LABS: Varicella IgG Antibody 606 index (Immune >165)
== END ==
PROVIDERS: PCP Family Medicine; Referring Provider Family Medicine; Visit Provider Family Medicine
DX: Z34.00 Encounter for supervision of normal first pregnancy, unspecified trimester (principal)
CPT/HCPCS: 36415; 80055; 81003; 86787; 86803; 86850; 86900; 86901; 87086; 87389

== ENCOUNTER 2024-01-19 07:16 | Outpatient (CLI) | payer OTHER, SELFPAY ==
--- NOTE | 2024-01-19 08:21 | P.TNLD_ITS ---
Visit Information Visit Information Date of evaluation: 01/19/24 Primary OB Provider: Latoya Cunningham On-call OB Provider: Latoya Cunningham Reason for Evaluation: Yes rupture of membranes Comments/Additional reasons for admission: Merna called at 0532 to report a gush of clear fluid at 0530. Met here to confirm ROM and evaluate fetus. She is feeling good, not feeling any contractions. After discussion of r/b/a, she decided to go home to wait for labor. 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 virus infection (05/28/15) Surgical History [place] teeth extracted Family History Grandfather Stroke Heart disease Grandmother Hypertension Alzheimers disease Aunt Spina bifida Father Skin cancer Hyperlipidemia Grandfather Alzheimers disease Grandmother Spinal cord stroke Frontal lobe dementia Social History marital status: unmarried,living together number of children: 0 household members: significant other lives independently: Yes caregiver/support person: No housing: house pets and animals: Yes (1 dog, 2 cats, s/o will manage litter boxes) education level: college (associate's degree) 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) current occupational exposures/hazards: No special bentley needs: No travel history: over 6 months ago seatbelt use: always helmet use: Yes water heater temp set < 120 deg: Yes working smoke detector in home: Yes fire extinguisher in home: Yes carbon monox detector in home: Yes firearms in home: No do you feel safe at home: Yes Smoking Status: Never smoker alcohol intake: former (2-6/week when not ) substance use type: does not use during the past year weight has: increased > 10 lbs (very recently) well-balanced diet: daily or most days daily servings fruits/ve or more times/day caffeine: No (quit w/ ) Type(s) of exercise: walking and other (active job, hiking) Review of Systems Review of Systems Narrative: All negative except as mentioned in HPI. Exam Presentation: vertex Estimated Weight (lbs): 8 Amniotic Fluid: clear (copious fluid noted; wearing diaper) Evaluation Evaluation Baseline heart rate: 130 Variability: Moderate (11-25) monitor accelerations: Present Monitor Decelerations: Absent Contraction Frequency (minutes): 6 (irregular, painless) Uterine Contraction Intensity: Mild Category of Tracing: Reactive Comments: Exam on 01/16/24 by Beata: 1.5/60/-2. Cervical exam deferred today due to PROM. Diagnosis, Plan/Disposition Final Diagnosis (1) Supervision of normal first in third trimester: Status: Acute Problem details: GBS negative Low-risk course (2) Rupture of membranes with clear amniotic fluid: Status: Acute Problem details: Reviewed ACOG and ACNM guidelines re: PROM including risk of infection, infection prevention, option to initiate pitocin augmentation but reasonable to wait 12-24 hours. (3) Afebrile: Status: Acute Plan/Disposition Plan: Discharge home. Instructions included to put nothing in vagina but okay to bathe/shower; check temperature at home. Call or come back with contractions or if concerned about baby or increased temperature. Plan to meet up in 12 hours to decide on next plan of action. May meet in clinic or in hospital; pt will decide and be in touch with CNM.
== END 2024-01-19 08:43 | disposition home or self-care (01) ==
LOC: OB 01-30 09:37
PROVIDERS: PCP Family Medicine; Referring Provider Advanced Practice Midwife; Visit Provider Advanced Practice Midwife
DX: O42.92 Full-term premature rupture of membranes, unspecified as to length of time between rupture and onset of labor (principal); Z3A.38 38 weeks gestation of pregnancy
CPT/HCPCS: 59025; G0378; G0379

== ENCOUNTER 2024-01-19 20:35 | Inpatient (IN) | payer OTHER, SELFPAY ==
[2024-01-19 21:00] VITALS: BP 123/77
--- NOTE | 2024-01-19 21:02 | P.HPOB_ITS ---
OB HPI Date/Time Date of admission: 01/19/24 Date Patient Seen: 01/19/24 Time Patient Seen: 21:02 History of Present Condition Chief complaint: observation of labor : 1 Para: 0 Estimated Date of Delivery: 02/02/24 Estimated Gestational Age (weeks): 38w0d Narrative: Dori Knowles is a 28 year old female at 38w0d by 15 week ultrasound and unsure LMP. Merna reported ROM with clear fluid at 0530 today and has continued throughout the day. Had evaluation and RNST here this morning which was repeated in our clinic at 6 pm. She has been afebrile all day. Started feeling mild contractions approx 1700. Came to hospital for admission at 2044 anticipating cervical ripening or pitocin augmentation of labor. Contractions picked up between NST at 6 pm and arriving at hospital [facility]. Prefers no augmentation of labor for now. Contractions are getting increasingly painful, she is having hot and cold flashes, shaking and vomited once shortly after arrival. Merna is well supported by her , Kavon. They are excited to meet their baby! Merna had an uncomplicated that began at [facility] under the care of Dr. Emily Morrison. She transferred care to [facility] at 32 weeks. History of Present care: good care, initiated at week # (15), number of visits (11) and pounds weight gain (43) Dating criteria: based on 2nd trimester US only Ultrasounds: normal mid trimester US Obstetrical complications: none Medical complications: psychiatric (anxiety) Preadmission Labs Blood type: O (+) positive -: Antibody screen: negative, Cystic fibrosis screen: unknown, GBS status: negative, HBsAG: negative, HIV: negative, HSV 1: negative, HSV 2: negative and RPR/VDLR: negative -: Rubella: immune and Varicella: immune HCT: 35.8 HCAB: negative PAP: Normal (2022) 1 hr GTT: 67 Narrative: Genetic screening: Quad screen was planned but never drawn. GC/CT not done during . Prior (ies) History: none Evaluation Evaluation Baseline heart rate: 125 Variability: Moderate (11-25) monitor accelerations: Present Monitor Decelerations: Absent Contraction Frequency (minutes): 4 Uterine Contraction Intensity: Moderate Status: Category l Dilation (cm): 2.5 Effacement (%): 90 Dilation: 3-4 cm Effacement: >/=80% station: -1 Position of cervix: mid Consistency: soft Workman score: 10 Comments: Gross rupture observed several times throughout the day by RN and ALBERTO. [facility] Medical History (Updated 01/19/24 @ 22:48 by Latoya Cunningham CNM, [place]ILSON) HPV test positive Encounter for supervision of normal first , unspecified trimester Acne (~2011) Low grade squamous intraepithelial lesion (LGSIL) on Papanicolaou smear of cervix (05/28/15) High risk human papilloma virus infection (05/28/15) Surgical History [place] teeth extracted Family History Grandfather Stroke Heart disease Grandmother Hypertension Alzheimers disease Aunt Spina bifida Father Skin cancer Hyperlipidemia Grandfather Alzheimers disease Grandmother Spinal cord stroke Frontal lobe dementia Social History marital status: unmarried,living together number of children: 0 household members: significant other lives independently: Yes caregiver/support person: No housing: house pets and animals: Yes (1 dog, 2 cats, s/o will manage litter boxes) education level: college (associate's degree) 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) current occupational exposures/hazards: No special bentley needs: No travel history: over 6 months ago seatbelt use: always helmet use: Yes water heater temp set < 120 deg: Yes working smoke detector in home: Yes fire extinguisher in home: Yes carbon monox detector in home: Yes firearms in home: No do you feel safe at home: Yes Smoking Status: Never smoker alcohol intake: former (2-6/week when not ) substance use type: does not use during the past year weight has: increased > 10 lbs (very recently) well-balanced diet: daily or most days daily servings fruits/ve or more times/day caffeine: No (quit w/ ) Type(s) of exercise: walking and other (active job, hiking) Meds Home Medications and Allergies Home Medications Medication Instructions Recorded Confirmed Type vitamin-ferrous sulfate tab PO 08/10/23 12/09/23 History 27 mg iron-folic acid 0.8 mg tablet Allergies Allergy/AdvReac Type Severity Reaction Status Date / Time No Known Drug Allergies Allergy Verified 12/09/23 10:15 Review of Systems Review of Systems Narrative: Negative except as mentioned in HPI. OB Exam Vital signs Blood Pressure: 123/77 Pulse Rate: 85 Respiratory Rate: 16 Temperature: 97.5 F Resp Effort & Inspection: normal respiratory effort and able to speak in complete sentences Auscultation: clear to auscultation bilaterally Cardio Rate: regular rate Rhythm: regular rhythm Heart Sounds: S1 normal and S2 normal GI Inspection: normal to inspection External Female Exam: Yes normal external appearance Presentation: vertex (confirmed by ultrasound) Estimated Weight (lbs): 8 Objective Labs 01/19/24 21:15 Assessment and Plan Assessment and Plan Assessment and Plan narrative: at 38w0d by 15 week ultrasound GBS neg Rh pos PROM x 16 hours Afebrile FHR Cat 1 Early labor Admit to L&D. Review comfort measures for early labor. Consider starting pitocin augmentation if contractions space out. Anticipate .
[2024-01-19] MEDS: ONDANSETRON 4 MG/2 ML INJ IV (21:23)
[2024-01-19 21:33] LABS: Add Manual Diff / Slide Review NO; Basophils Absolute Auto 100 /uL (0-100); Basophils Percent Auto 0.4 % (0-2); Eosinophils Absolute Auto 100 /uL (0-450); Eosinophils Percent Auto 0.4 % (2-4); Hematocrit 39.5 % (36-46); Hemoglobin 13.7 g/dL (12.0-16.0); Lymphocytes Absolute Auto 1600 /uL (1100-4500); Lymphocytes Percent Auto 10.7 % (25-40); Mean Corpuscular HGB Conc 34.7 % (30-36); Mean Corpuscular Hemoglobin 30.6 PG (26-34); Mean Corpuscular Volume 88.1 fL (80-100); Monocytes Absolute Auto 1100 /uL (0-900); Monocytes Percent Auto 7.3 % (3-14); Neutrophils Absolute Auto 11800 /uL (1500-7000); Neutrophils Percent Auto 81.2 % (50-75); Platelet Count 169 X10^3/uL (150-400); Red Blood Cell Count 4.48 X10^6/uL (4.0-5.2); Red Cell Distribution Width 13.5 % (11.6-14.8); White Blood Cell Count 14.6 X10^3/uL (4.5-11.0)
[2024-01-19 22:51] VITALS: BP 123/77; PULSE 85; RESP 16; TEMP 36.4
--- NOTE | 2024-01-20 | PATH_ITS ---
[facility] Accession Number: [id number] No. of containers..01 Tissue . 01 Material submitted: . placenta - PLACENTA . 01 Diagnosis: PLACENTA: Intact, kaba, bilobed placenta with features of maturation consistent with third trimester gestational age. Placenta weight: 556 grams (gestational age not provided). Velamentously inserted, three vessel umbilical cord; no arteritis, funisitis, true knots, or thrombi. Marginally inserted, unremarkable membranes; no evidence of chorioamnionitis or features meconium staining. Mature infarct occupying less than 10% of the total cotyledon volume. Intervillous thrombus. No evidence of villitis, infectious organisms, or features of abruption. MRV 01/27/2024 1243 Local . 01 Electronically signed: . Jeannie Tavarez MD, Pathologist NPI- [id number] . 01 Gross description: . Received in formalin with two identifiers and placenta, is an irregularly shaped kaba placenta weighing 556 grams and measuring 25.5 x 12.2 x 2.3 cm. A thin, fibrotic band splits the placenta approximately in half, possibly consistent with two separate lobes. . The membranes are claudio and translucent with no areas of thickening and several blue-guerrero vessels within the membrane. The membranes insert at the margin and have a point of rupture 2.9 cm from the nearest placental disc edge. . The cord mesures 40.2 cm in length by 1.1 cm in diameter with a leftward coil and an index of approximately one twist per 5 cm. The cord inserts velamentously with vessels extending through the membranes. Sectioning reveals unremarkable trivascular architecture with no knots or lesions identified. . The surface is blue-guerrero with arborizing vasculature and several small claudio areas occupying less than 10% of the surface. . The material surface is apparently complete with areas of thin adherent hemorrhagic material occupying approximately 20% of the maternal surface. No additional lesions identified. Sectioning reveals a red, spongy cut surface with a claudio, firm area of discoloration located pripherally occupying less than 10% of the cut surface. No additional lesions are identified. . Suppository Molding Machine Operator sections are submitted as follows: A1: end of cord and membranous cord insertion. A2: end of cord and membrane roll. A3: Fibrous area between presumed lobes. A4: Composite full thickness section of cut surface discoloration. A5-A6: Full thickness sections with adherent hemorrhagic material. A7: surface discoloration. A8-A10: Central full thickness unremarkable sections. Photographs taken. ([id number]) /JAMES 01/22/2024 [facility] Local . 01 Pathologist provided ICD-10: O43.90, O42.013 . 01 CPT . 725860 Specimen Comment: A courtesy copy of this report has been sent to [facility] Pathology Performed at: 01 [facility] [address] [place] [address] [id number] MD Noah Pandey MD Phone: [phone]
--- NOTE | 2024-01-20 00:52 | PM.OBPNLAB ---
Date/Time Date Patient Seen: 01/20/24 Time Patient Seen: 00:40 Pain Control Pain control: tolerating well Comments: Merna is laboring well with Cy's support. In bed on her side. Pelvic Exam Dilation (cm): 2.5 Effacement (%): 90 station: -1 Comments: Exam deferred at this time d/t ROM and early labor. Contractions Date/Time contractions began: 01/19/2024 approx 1700 Monitor mode: External Contraction frequency (min): 3 Contraction duration (min): 1 Contraction intensity: Moderate Status Heart Rate Baseline: 130 Comments: Intermittent auscultation: increases noted; no decreases. Bloody show. Assessment and Plan Comments: at 38w0d GBS neg PROM x 19 hours Early labor Continue intermittent auscultation and provide comfort measures
--- NOTE | 2024-01-20 04:37 | PM.OBPNLAB ---
Date/Time Date Patient Seen: 01/20/24 Time Patient Seen: 04:15 Pain Control Pain control: tolerating well Comments: Merna is working hard, feeling lots of pressure in her pelvis, wondering if it's time to push. Well supported by Cy. Requests exam. Disappointed it's not time to push; desires some pain management at this time. Complaining of lower abdominal pain. Pelvic Exam Dilation (cm): 4 Effacement (%): 90 station: -1 Amniotic membrane status: Leaking (bloody discharge) Comments: anterior lip edematous; unable to determine vertex position but likely malpositioned head Uterus soft between contractions; contractions palpate moderate to firm Contractions Monitor mode: External Contraction frequency (min): 3 (2-4) Contraction duration (min): 1 Contraction pattern: Regular Contraction intensity: Moderate Status Heart Rate Baseline: 130 Comments: FHR reassuring by doppler with increases noted, decreases absent VS at 0500: BP 108/59 HR 76 bpm temp 37.0 C Assessment and Plan Comments: in early labor PROM x 23 hours, afebrile GBS neg Bleeding in labor Recommend morphine/vistaril for therapeutic rest Recommend hands and knees for positioning prior Consider hydrotherapy for pain relief. Evaluate uterine tone. NST to ensure health with bleeding.
[2024-01-20] MEDS: hydrOXYzine 50 MG/ML INJ IM (04:56)
[2024-01-20] MEDS: MORPHINE 10 MG/ML INJ IM (04:57)
--- NOTE | 2024-01-20 07:09 | PM.OBPNLAB ---
Date/Time Date Patient Seen: 01/20/24 Time Patient Seen: 07:10 Pain Control Pain control: tolerating well Comments: CNM assumed care of patient at 0600. Merna received morphine and Vistaril with mild relief at 0457. Merna is currently breathing through and moaning with strong, regular contractions. Able to rest between contractions. Partner supportive at her side. Continues to leak bloody discharge. All pain is down low in the front with contractions. VS: BP 108/59, HR 77bpm, T 36.8C Temporal Pelvic Exam Dilation (cm): 6 Effacement (%): 90 station: -1 Amniotic membrane status: Leaking (bloody discharge) Contractions Date/Time contractions began: Uterus palpates soft between contractions Monitor mode: External Pitocin rate (mU/min): 0 Contraction frequency (min): 3 Contraction pattern: Regular Contraction intensity: Moderate Status status: Category l Heart Rate Baseline: 125 Monitor Accelerations: Present Monitor Decelerations: Absent Monitor Variability: Moderate Assessment and Plan Assessment: active labor Plan: continuous present management
--- NOTE | 2024-01-20 11:03 | PM.OBPNLAB ---
Date/Time Date Patient Seen: 01/20/24 Time Patient Seen: 11:03 Pain Control Pain control: tolerating well Comments: Prefers side lying in bed as most tolerable position. Continues to breathe through strong, regular contractions. Feeling occasional, mild urge to push. VS: BP 121/63, HR 78bpm, T 36.4C Temporal Pelvic Exam Dilation (cm): 8 Effacement (%): 100 station: 0 Amniotic membrane status: Leaking (bloody discharge) Contractions Monitor mode: External Contraction frequency (min): 3 Contraction pattern: Regular Contraction intensity: Moderate Status Heart Rate Baseline: 130 Comments: reassuring by doppler Assessment and Plan Assessment: active labor (SROM x 30 hours without sx of infection) Plan: continuous present management Comments: Continue Q1hr temp checks. Anticipate second stage soon. Reassess in 2-4 hours or sooner with strong urge to push.
[2024-01-20] MEDS: LACTATED RINGERS 1,000 ML 100 ML IV (13:38)
[2024-01-20] MEDS: OXYTOCIN PREMIX 30 UNIT/500 ML PLAST..BAG IV (13:38)
--- NOTE | 2024-01-20 15:45 | PM.OBPRVD ---
Labor & Delivery Delivery date: 01/20/24 Intrapartal Events: Prolonged 2nd Stage > 2.5 hours and Bleeding Cervical ripening method: none Induction method: none Delivery augmentation: pitocin Delivery monitor: external FHT and external uterine Route of delivery: Episiotomy description: None L&D Laceration Description: Labial and Superficial Quantitative Blood Loss: 280 Anesthesia Type: None Narrative: Labor progressed well without augmentation or additional anesthesia (morphine and vistaril administered in early labor). Merna felt a slowly increasing urge to push and was presumed complete at 1240. Pitocin augmentation (max dose 6mu/min) was initiated for spaced contractions Q8 minutes apart during prolonged second stage. A heavier than normal amount of bloody show/vaginal bleeding was noted during labor, though did not continue throughout; estimated at a total of 200mL. Reassuring FHR by intermittent auscultation throughout stage 1 labor and Cat II FHR throughout second stage. Fluid remained clear with no signs of infection despite total ROM of 33.5 hours. NSVB of a vigorous baby boy in BING position. There was a single loose nuchal cord and the shoulders delivered easily, without additional maneuvers. CNM and FOB with hands on at . was lifted to maternal abdomen by FOB. Remaining 30 units of pitocin in 500mL LR was increased to 250mL/hr for active management of the third stage. After cessation of pulsation, the cord was double clamped by CNM and cut by FOB. Gentle cord traction and maternal push led to spontaneous, Schultze delivery of an apparently intact placenta, membranes and 3VC. The placenta had 2 lobes and a velamentous cord insertion, not seen on ultrasound. Fundus immediately firm and bleeding small. Inspection revealed bilateral, superficial splits to the upper labia minora; vagina and perineum otherwise intact with no indication for repair. QBL 280mL (total EBL 480mL for labor and ). Both mother and baby stable and skin to skin as I left the room. Baby 1: Infant gender: Male Presentation: vertex Position: Left Occiput Anterior Placenta delivery description: Spontaneous and Abnormal Configuration Cord Vessel Description: 3 Vessels, Nuchal Cord and Loose score (1 min): 9 score (5 min): 9 weight: 3.119 kg Plan for aftercare: Routine care (placenta to pathology)
[2024-01-20] MEDS: KETOROLAC 30 MG/ML VIAL IV (16:37)
[2024-01-20] MEDS: IBUPROFEN 600 MG TABLET PO (22:46)
[2024-01-21] MEDS: IBUPROFEN 600 MG TABLET PO (04:39)
[2024-01-21 07:01] LABS: Add Manual Diff / Slide Review NO; Basophils Absolute Auto 0 /uL (0-100); Basophils Percent Auto 0.2 % (0-2); Eosinophils Absolute Auto 100 /uL (0-450); Eosinophils Percent Auto 0.2 % (2-4); Hematocrit 36.4 % (36-46); Hemoglobin 12.6 g/dL (12.0-16.0); Lymphocytes Absolute Auto 1700 /uL (1100-4500); Lymphocytes Percent Auto 7.3 % (25-40); Mean Corpuscular HGB Conc 34.5 % (30-36); Mean Corpuscular Hemoglobin 30.5 PG (26-34); Mean Corpuscular Volume 88.4 fL (80-100); Monocytes Absolute Auto 1200 /uL (0-900); Monocytes Percent Auto 5.5 % (3-14); Neutrophils Absolute Auto 19800 /uL (1500-7000); Neutrophils Percent Auto 86.8 % (50-75); Platelet Count 168 X10^3/uL (150-400); Red Blood Cell Count 4.12 X10^6/uL (4.0-5.2); Red Cell Distribution Width 13.8 % (11.6-14.8); White Blood Cell Count 22.8 X10^3/uL (4.5-11.0)
--- NOTE | 2024-01-21 10:26 | P.DS_ITS ---
Discharge Providers Provider Date of admission: 01/19/24 20:35 Discharge Date: 01/21/24 Primary care physician: Latoya Cunningham CNM, ARNP Consults: 01/19/24 20:51 Consult to Anesthesiology Urgent Comment: Consulting Provider: Anesthesiologist Reason for consultation: Epidural Has provider been notified: No 01/21/24 15:40 Consult to [employer] Cutting Machine Operator Routine Discharge provider: Latoya Cunningham CNM, ARNP Summary Hospital Course Date Patient Seen: 01/21/24 Time Patient Seen: 10:26 Diagnoses: Z34.03, Z37.0, 080, Z39.1 NSVB, intact perineum, periurethral lacerations, Hospital Course: Admitted for labor after PROM x 16 hours in early labor. Progressed without interventions to complete, pitocin given to augment contractions in 2nd stage. NSVB over intact perineum. Bleeding during labor due to velamentous cord; total QBL 721 mL. Normal course with normal H&H day of discharge. . Peripartum Data Delivery Method: Natural Vaginal Laceration Description: Periurethral - 1st Degree (bilateral) Procedures: NSVB complications: none 1: Gender: Male Disposition of : home Discharge Diagnosis (1) Breast feeding status of mother: Status: Acute (2) (normal spontaneous vaginal delivery): Status: Acute (3) Intact perineum: Status: Acute (4) Periurethral laceration, delivered, current hospitalization: Status: Acute Status at Discharge Cognitive/behavioral status at discharge: oriented Functional status at discharge: independent ambulation Overall status at discharge: patient is progressing back to baseline Time Spent with Patient Time attestation: Total time spent providing and/or coordinating discharge services: Objective Labs 01/21/24 06:44 Labs: Laboratory Results - last 24 hr 01/21/24 06:44 WBC 22.8 H D RBC 4.12 Hgb 12.6 Hct 36.4 MCV 88.4 MCH 30.5 MCHC 34.5 RDW 13.8 Plt Count 168 Neut % (Auto) 86.8 H Lymph % (Auto) 7.3 L Hughes % (Auto) 5.5 Eos % (Auto) 0.2 L Baso % (Auto) 0.2 Neut # (Auto) 58530 H Lymph # (Auto) 1700 Hughes # (Auto) 1200 H Eos # (Auto) 100 Baso # (Auto) 0 Exam Vital Signs (past 8 hours): BP 99/65 HR 84 bpm RR: 16/min Temp: 97.1 F Other: Fundus firm at U-1, midline. Lochia scant Perineum intact with minimal edema Discharge Plan Discharge Plan Patient Disposition: Home Discharge orders & Medications Prescriptions: Continued vit-ferrous sulfat-FA 27 mg iron- 0.8 mg tablet PO Medication counseling provided by Pharmacist: No Follow up/Referrals: Latoya Cunningham, ALBERTO, [employer]WORK[employer] [Primary Care Provider] - 2 Weeks (2 weeks and 6 weeks; patient has e-mail confirmation of appointments already scheduled. ) Diet/Activity/Treatments Diet: Diet as Tolerated and Regular Diet comment: increase fiber and fluid for healing and to promote soft stools Activity: Low goff for at least 2 weeks Cold/Heat Therapy: use as needed Skin/Wound/Dressing Care Skin care: usual care, gentle Report to your healthcare provider any signs of infection, such as:: chills, fever, unusual drainage and unusual redness Visit Report/Discharge Packet Instructions: DI for Labor and Delivery, Vaginal Stand Alone Forms: Patient Portal/API Discharge Data Primary Care Provider: Latoya Cunningham
[2024-01-21 12:37] VITALS: BP 99/65; PULSE 84; RESP 16; TEMP 36.2
[2024-01-21 14:31] LABS: Urine Chlamydia NOT DETECTED; Urine N gonorrhoeae NOT DETECTED
== END 2024-01-21 13:37 | disposition home or self-care (01) | DRG 807 ==
PROVIDERS: Nurse Practitioner Obstetrics & Gynecology; Admitting Provider Advanced Practice Midwife; PCP Advanced Practice Midwife; Referring Provider Advanced Practice Midwife; Visit Provider Advanced Practice Midwife
DX: O42.12 Full-term premature rupture of membranes, onset of labor more than 24 hours following rupture (principal); Z37.0 Single live birth; Z3A.38 38 weeks gestation of pregnancy; O63.1 Prolonged second stage (of labor); O76 Abnormality in fetal heart rate and rhythm complicating labor and delivery; O42.92 Full-term premature rupture of membranes, unspecified as to length of time between rupture and onset of labor
CPT/HCPCS: 36415; 59025; 59050; 85025; 86850; 86900; 86901; 87491; 87591; G0379; J1885; J2270; J2405; J2590; J3410

== ENCOUNTER → 2025-10-07 07:18 | Outpatient (CLI) | payer OTHER, SELFPAY ==
--- NOTE | 2025-10-07 07:21 | DI.US.S_ITS ---
PROCEDURE: US OB >= 14 WEEKS FETUS INDICATIONS: 20 week anatomy scan OUTSIDE/PRIOR DATING DATA: Provided working BERTA 02/23/2026 TECHNIQUE: Real-time scanning was performed of the fetus, with image documentation and biometric measurements. COMPARISON: None FINDINGS: General: A single living intrauterine gestation is present. Presentation: Transverse. Placenta: Placental position is posterior. Low lying placenta, within 1 cm of the internal os. Amniotic fluid index: 15 cm, normal range is 5-24 cm. Single deepest vertical pocket is 5.1 cm. heart rate: 145 beats per minute. Maternal cervical canal: 4.2 cm long. Normal lower limit is 2.5 cm. biometrics: Biparietal diameter: 4.8 cm 20 weeks and 3 days Head circumference: 17.2 cm, 19 weeks and 5 days Abdominal circumference: 15.5 cm, 20 weeks and 5 days Femur length: 3 cm, 19 weeks and 2 days Clinically estimated gestational age: 20 weeks and 1 day Composite gestational age from present scan: 20 weeks Estimated weight and percentile: 330 g, 41% Anatomic survey: Neuro: Ventricles are non-dilated at less than 10 mm. Cisterna magna is normal at 3-11 mm. Cerebellum is normal in size and morphology. Nuchal skin fold: Normal at less than 6 mm between 14-21 weeks gestational age. Face: Nose and lips, facial profile are normal. Spine: Likely within normal limits although the skin line overlying the sacrum was not fully seen due to position Heart: 4-chambered heart is present, with normal ventricular outflow tracts. Diaphragm: Diaphragm is intact. Stomach: Left-sided stomach is present. Kidneys: No hydronephrosis. Normal is less than 5 mm in 2nd trimester, less than 7 mm in 3rd trimester. Cord: 3-vessel cord has orthotopic insertion. Bladder: Normal in size. Extremities: All 4 extremities identified. IMPRESSION: Intrauterine gestation with cardiac motion in transverse presentation. EFW at the 41%, within normal limits. Normal STEPHANIE. Skin line overlying the sacrum not well seen due to position, though likely within normal limits. Low lying placenta, less than 1 cm from the internal os. Short interval follow-up is recommended. Dictated by: Prateek Segura M.D. on 10/07/2025 at 10:22 Approved by: Prateek Segura M.D. on 10/07/2025 at 10:26
== END ==
PROVIDERS: PCP Advanced Practice Midwife; Referring Provider Advanced Practice Midwife; Visit Provider Advanced Practice Midwife
DX: O44.42 Low lying placenta NOS or without hemorrhage, second trimester (principal); Z3A.20 20 weeks gestation of pregnancy
CPT/HCPCS: 76811; 76817